=== PATIENT | female | born 1985 ===

== ENCOUNTER 2018-05-20 10:00 | Inpatient (IN) | payer OTHER ==
[2018-05-20] MEDS ORDERED: Ondansetron PF 4 MG/2 ML Vial IVP PRN ×3 (10:17→14:17)
[2018-05-20] MEDS ORDERED: Promethazine HCl 25 MG/ML VIAL IM PRN ×3 (10:17→14:17)
--- NOTE | 2018-05-20 10:23 | PDOC.LDHP ---
Labor and Delivery H&P Chief complaint: scheduled section HPI: 30 at 39 and 3/7w presents for 2nd repeat . Due date: 05/24/18 Grav: 2 Para: 1 Current complications: none Abnormal US findings: No Current medications: pre-mee vitamins Previous surgical history: low tranverse CS - Physical Exam Vital signs reviewed and normal: yes General: NAD, resting Heart: RRR Lungs: CTAB Abdomen: NTTP Extremeties: no edema FHT: category 1 - Assessment L&D Assessment: scheduled repeat section - Plan Plan: admit to L&D, to OR for section
[2018-05-20] MEDS ORDERED: CEFAZOLIN/Water 2 GM/20 ML SYRINGE SLOW IVP SCH (10:30)
[2018-05-20 10:35] VITALS: BMI 29.9
[2018-05-20] MEDS: Lactated Ringer's 1,000 ML IV SCH ×2 (10:35→11:41)
[2018-05-20] MEDS ORDERED: Ondansetron PF 4 MG/2 ML Vial ONE ×2 (10:44→11:48)
[2018-05-20] MEDS ORDERED: ePHEDrine 50 MG/ML VIAL ONE (10:44)
[2018-05-20 10:57] LABS: Hemoglobin 12.1 g/dL (12.0-16.0); Mean Corpuscular HGB CONC 33.8 g/dL (32.0-36.0); Mean Corpuscular Volume 88.8 fL (78.0-98.0); Mean Platelet Volume 9.9 fL (7.4-10.4); Platelet Count 136 thou/uL (130-400); RBC Distribution Width 12.4 % (11.5-14.5); Red Blood Cell (RBC) Count 4.04 mill/uL (4.20-5.40); White Blood Cell (WBC) Count 8.3 thou/uL (4.8-10.8)
[2018-05-20 11:33] LABS: Syphilis Antibody Nonreactive (Nonreactive); Syphilis Antibody Index 0.03 S/CO (<1.00 Non-Reactive)
[2018-05-20 11:36] LABS: HBSAg Index 0.29 S/CO (0-0.99); Hep B Surf Ag Non-Reactive S/CO (NonReactive)
[2018-05-20] MEDS ORDERED: Glycopyrrolate 0.2 MG/ML 5 ML SYRINGE ONE (11:57)
[2018-05-20] MEDS ORDERED: Morphine PF 1 MG/ML SYR ONE (11:58)
[2018-05-20] MEDS ORDERED: CEFAZOLIN 2 GM/50 ML BAG ONE (11:59)
[2018-05-20] MEDS ORDERED: Bicitra 30 ML UDCUP ONE (12:00)
[2018-05-20] MEDS ORDERED: CEFAZOLIN 2 GM/50 ML-DEXTROSE 2 GM in Premix Bag 1 BAG IVPB SCH (12:15)
[2018-05-20] MEDS ORDERED: Bicitra 30 ML UDCUP PO SCH (12:15)
[2018-05-20] MEDS ORDERED: HYDROmorphone 2 MG/ML VIAL SLOW IVP PRN (12:59)
[2018-05-20] MEDS ORDERED: Naloxone HCl 0.4 mg/ml Vial IV PRN (12:59)
[2018-05-20] MEDS ORDERED: Ondansetron HCl/PF 4 MG/2 ML Vial IVP PRN (12:59)
[2018-05-20] MEDS ORDERED: Eucerin (Mineral Oil/Petrolatum,White) 30 gm Jar TOP PRN (12:59)
[2018-05-20] MEDS ORDERED: Meperidine HCl/PF 25 MG/ML VIAL SLOW IVP PRN (12:59)
[2018-05-20] MEDS ORDERED: L&D-Morphine 4 MG/ML VIAL SLOW IVP PRN (12:59)
[2018-05-20] MEDS ORDERED: Promethazine HCl 25 MG SUPP PR PRN (12:59)
[2018-05-20] MEDS ORDERED: diphenhydrAMINE 50 MG/ML VIAL IVP PRN (12:59)
[2018-05-20] MEDS ORDERED: Naloxone HCl 0.4 mg/ml Vial IVP PRN ×2 (12:59)
[2018-05-20] MEDS ORDERED: Communication Order-Pharmacy FS SCH (13:00)
[2018-05-20] MEDS ORDERED: Ketorolac Tromethamine 30 MG/ML VIAL IVP SCH (13:00)
[2018-05-20] MEDS ORDERED: NS / Oxytocin 40 units/1000ml 0 ML ONE ×2 (13:38)
[2018-05-20] MEDS ORDERED: Lidocaine 1% (PF) 30 ML VIAL ONE (13:38)
[2018-05-20] MEDS: Ketorolac Tromethamine 30 MG/ML VIAL IVP PRN ×2 (14:12→23:01)
[2018-05-20] MEDS ORDERED: Ketorolac Tromethamine 30 MG/ML VIAL ONE (14:12)
[2018-05-20] MEDS ORDERED: diphenhydrAMINE 25 MG CAP PO PRN (14:17)
[2018-05-20] MEDS ORDERED: Adacel (T-DAP) 0.5 ML SYRINGE IM ONE (14:17)
[2018-05-20] MEDS ORDERED: Bisacodyl 10 MG SUPP PR PRN (14:17)
[2018-05-20] MEDS ORDERED: HYDROcodone/Acetaminophen 5/325 mg Tablet PO PRN (14:17)
[2018-05-20] MEDS ORDERED: Lanolin Ointment 7 GM TUBE TOP PRN (14:17)
[2018-05-20] MEDS ORDERED: Methylergonovine 0.2 MG/ML VIAL IM PRN (14:17)
[2018-05-20] MEDS ORDERED: Varicella virus, LIVE 0.5 ML VIAL SC ONE (14:17)
[2018-05-20] MEDS ORDERED: Measles/Mumps/Rubella 10 MCG/0.5 ML VIAL SC ONE (14:17)
[2018-05-20] MEDS ORDERED: NS / Oxytocin 40 units/1000ml 1,000 ML IV SCH (14:17)
[2018-05-20] MEDS: Ibuprofen 800 MG TAB PO SCH ×2 (16:41→23:11)
[2018-05-20] MEDS: Docusate Calcium (SURFAK) 240 MG CAP PO SCH (21:30)
[2018-05-21] MEDS: Sodium Chloride 0.9% 1,000 ML IV SCH ×2 (03:01→10:10)
[2018-05-21] MEDS: Simethicone Chewable 80 MG TAB PO PRN ×2 (06:00→17:13)
[2018-05-21] MEDS: Ibuprofen 800 MG TAB PO SCH ×3 (06:02→21:48)
[2018-05-21 06:34] LABS: Hemoglobin 10.3 g/dL (12.0-16.0); Mean Corpuscular HGB CONC 33.1 g/dL (32.0-36.0); Mean Corpuscular Hemoglobin 30.1 pg (27.0-31.0); Mean Corpuscular Volume 90.8 fL (78.0-98.0); Mean Platelet Volume 9.1 fL (7.4-10.4); Platelet Count 123 thou/uL (130-400); RBC Distribution Width 12.4 % (11.5-14.5); Red Blood Cell (RBC) Count 3.43 mill/uL (4.20-5.40); White Blood Cell (WBC) Count 9.8 thou/uL (4.8-10.8)
[2018-05-21] MEDS: Ketorolac Tromethamine 30 MG/ML VIAL IVP PRN (07:27)
[2018-05-21] MEDS: Prenatal Vitamin 1 TAB PO SCH (08:16)
[2018-05-21] MEDS: Docusate Calcium (SURFAK) 240 MG CAP PO SCH ×2 (08:17→21:48)
[2018-05-21] MEDS: HYDROcodone/Acetaminophen 5/325 mg Tablet PO PRN ×2 (09:13→18:44)
[2018-05-22] MEDS: Simethicone Chewable 80 MG TAB PO PRN ×2 (01:40→08:35)
[2018-05-22] MEDS: Sodium Chloride 0.9% 1,000 ML IV SCH ×4 (03:25→19:31)
[2018-05-22] MEDS: Ibuprofen 800 MG TAB PO SCH ×3 (04:49→22:01)
[2018-05-22] MEDS ORDERED: Sodium Chloride 0.9% 10 ML ONE (05:54)
[2018-05-22] MEDS: Prenatal Vitamin 1 TAB PO SCH (08:33)
[2018-05-22] MEDS: HYDROcodone/Acetaminophen 5/325 mg Tablet PO PRN ×3 (08:33→19:38)
[2018-05-22] MEDS: Docusate Calcium (SURFAK) 240 MG CAP PO SCH ×2 (08:35→22:01)
--- NOTE | 2018-05-22 10:44 | PDOC.PP ---
Post Progress Note Post Day #: 1 PO intake tolerated: yes Flatus: yes Ambulation: yes Vital Signs (12 hours) Temp Pulse Resp BP Pulse Ox 05/22/18 08:18 98.6 F 79 20 115/73 99 05/22/18 01:30 98.5 F 70 20 109/66 Weight Weight 180 lb - Physical Examination General: NAD Cardiovascular: no m/r/g, RRR Respiratory: clear to auscultation bilaterally, non-labored breathing Abdominal: + bowel sounds, lochia, no distention Extremities: negative homans (B) Skin: CS incision dry & intact, no rash Neurological: no gross focal deficits Psychiatric: A&Ox3, normal affect Result Diagrams: 05/21/18 06:03 Additional Labs: Post Labs Blood Type O POSITIVE 05/20/18 10:45 Hep Bs Antigen Non-Reactive S/CO (NonReactive) 05/20/18 10:45
--- NOTE | 2018-05-22 10:44 | PDOC.PP ---
Post Progress Note Post Day #: 2 PO intake tolerated: yes Flatus: yes Ambulation: yes Vital Signs (12 hours) Temp Pulse Resp BP Pulse Ox 05/22/18 08:18 98.6 F 79 20 115/73 99 05/22/18 01:30 98.5 F 70 20 109/66 Weight Weight 180 lb - Physical Examination General: NAD Cardiovascular: no m/r/g, RRR Respiratory: clear to auscultation bilaterally, non-labored breathing Abdominal: + bowel sounds, lochia, no distention Extremities: negative homans (B) Skin: CS incision dry & intact, no rash Neurological: no gross focal deficits Psychiatric: A&Ox3, normal affect Result Diagrams: 05/21/18 06:03 Additional Labs: Post Labs Blood Type O POSITIVE 05/20/18 10:45 Hep Bs Antigen Non-Reactive S/CO (NonReactive) 05/20/18 10:45
--- NOTE | 2018-05-22 12:36 | OP ---
DATE OF PROCEDURE: 05/20/2018 PREOPERATIVE DIAGNOSES: Intrauterine at 39 weeks and 3 days with a history of previous section and declined trial of labor after section. POSTOPERATIVE DIAGNOSES: Intrauterine at 39 weeks and 3 days with a history of previous section and declined trial of labor after section. PROCEDURE PERFORMED: Repeat low-transverse section. FINDINGS: Viable female weighing 3816 g or 8 pounds and 7 ounces, Apgars of 8 and 9. QUANTITATIVE BLOOD LOSS: 485 mL. COMPLICATIONS: None. DETAILS OF THE PROCEDURE: The patient was consented and taken back to the operating room where spinal anesthesia was found to be adequate. She was then prepped and draped in the normal sterile fashion. A timeout was performed by the entire operative team. The incision was then marked with a marking pen tested using sharp pickups. An incision was then made with a scalpel. The incision was carried through the adipose tissue down to the underlying rectus fascia using both sharp dissection as well as cautery. Once the fascia was identified, it was incised in the midline and then the fascial incision was carried through in both lateral directions using sharp as well as cautery dissection techniques. Next, the superior aspect of the rectus fascia was grasped with 2 Junior clamps, which was tented up and the rectus muscles were dissected off using blunt dissection as well as cautery dissection. Similarly, the inferior aspect of the fascial incision was grasped with 2 Junior clamps, tented up and the rectus muscles were dissected off bluntly as well as sharply. Next, the rectus muscles were in the midline and the peritoneum identified. The peritoneum was then carefully grasped with 2 hemostats and entered sharply. The peritoneal incision was extended superiorly and inferiorly and bladder blade was placed in the lower abdomen. At this point, the uterus was identified and the bladder flap was then developed using pickups with teeth as well as Metzenbaum scissors in both lateral directions. The bladder flap was then dissected downwards using the polishing machine operator helper's finger as well as Metzenbaum scissors. The bladder blade was replaced. The lower uterine segment was then identified and entered sharply using a clean scalpel. The uterine incision was then dissected downwards until thin layer of muscle remained and this was entered bluntly using a hemostat to avoid any injury to the baby. The uterine incision was then stretched using two fingers in both lateral directions. An amniotomy was performed artificially using a hemostat and the baby was delivered using fundal pressure in a gentle fashion. Once out, the baby's mouth and nose were bulb suctioned, cord clamped and cut, and the baby was handed to waiting attendants. Next, the uterus was exteriorized, cleared of all clots and debris and the uterine incision was repaired with #1 Monocryl in a running locking fashion. A 2nd suture of the same type was used to obtain complete hemostasis at the uterine incision. The bladder flap was reapproximated using 3-0 Monocryl. Next, patient's left and right adnexa were inspected and appeared to be within normal limits. The posterior cul-de-sac was blotted dry and hemostasis assured. One more look at the uterine incision demonstrated hemostasis. Next, the uterus was replaced back within the abdomen. The peritoneum was reapproximated using 2-0 Monocryl without difficulty. The rectus muscles were then allowed to come back together and 0 chromic was used to aid in reapproximation of the muscle as necessary. The rectus fascia was then reapproximated in a running fashion using 0 Vicryl suture. The adipose tissue was then examined and appeared to be well approximated without any obvious separations. Finally, the skin was reapproximated with 3-0 Monocryl on a Jesus needle without difficulty and Dermabond adhesive was applied to the skin. Once the glue was dry, the drapes were removed and the patient was transferred to an ambulatory bed where she was taken to recovery awake and in stable condition. Sponge, lap, and needle counts were correct x3. Job ID: [id number]
[2018-05-23] MEDS: Ibuprofen 800 MG TAB PO SCH (04:56)
[2018-05-23] MEDS: HYDROcodone/Acetaminophen 5/325 mg Tablet PO PRN ×2 (04:56→10:13)
[2018-05-23] MEDS: Sodium Chloride 0.9% 1,000 ML IV SCH ×2 (05:00→07:50)
[2018-05-23 08:43] VITALS: BP 119/64; TEMP 97.9
[2018-05-23] MEDS: Docusate Calcium (SURFAK) 240 MG CAP PO SCH (10:13)
[2018-05-23] MEDS: Prenatal Vitamin 1 TAB PO SCH (10:13)
== END 2018-05-23 13:30 | disposition home or self-care (01) | DRG 788 ==
LOC: L&D 10:00 → 3SW 16:01
PROVIDERS: ADMIT Obstetrics & Gynecology; ATTEND Obstetrics & Gynecology
PROC: 10D00Z1 Extraction of Products of Conception, Low, Open Approach (ICD-10-PCS; principal; 2018-05-20)
DX: O34.211 Maternal care for low transverse scar from previous cesarean delivery (principal); Z3A.39 39 weeks gestation of pregnancy; Z37.0 Single live birth
CPT/HCPCS: 36415; 51702; 85027; 86780; 86850; 86900; 86901; 87340; 90715; J1885; J2001; J2274; J2405; J3490